=== PATIENT | female | born 1975 | race Caucasian/White ===

== ENCOUNTER 2024-11-23 10:40 | Emergency (ER) | payer OTHER ==
[2024-11-23] MEDS: Sodium Chloride 0.9% 1,000 ML IV ONE (11:31)
[2024-11-23] MEDS: Ondansetron 4 MG/2 ML SDV IVPUSH ONE (11:32)
[2024-11-23] MEDS: Ketorolac 30 MG/ML SDV IVPUSH ONE (11:32)
[2024-11-23 11:34] LABS: BASOPHILS ABSOLUTE AUTO 0.05 K/uL (0.00-0.20); BASOPHILS PERCENT AUTO 0.8 % (0.0-1.0); EOSINOPHILS ABSOLUTE AUTO 0.16 K/uL (0.00-0.45); EOSINOPHILS PERCENT AUTO 2.5 % (0.0-6.0); HEMATOCRIT 39.6 % (37.0-47.0); HEMOGLOBIN 13.3 g/dL (12.0-16.0); IMMATURE GRAN ABSOLUTE AUTO 0.03 K/uL (0.00-0.05); IMMATURE GRAN PERCENT AUTO 0.5 % (0.0-0.4); LYMPHOCYTES ABSOLUTE AUTO 1.79 K/uL (1.00-4.80); LYMPHOCYTES PERCENT AUTO 28.4 % (24.0-44.0); MEAN CORPUSCULAR HEMOGLOBIN 30.4 pg (28.0-32.0); MEAN CORPUSCULAR HGB CONC 33.6 g/dL (32.0-36.0); MEAN CORPUSCULAR VOLUME 90.6 fL (83.0-99.0); MEAN PLATELET VOLUME 10.4 fL (9.4-12.3); MONOCYTES ABSOLUTE AUTO 0.32 K/uL (0.00-0.80); MONOCYTES PERCENT AUTO 5.1 % (0.0-8.0); NEUTROPHILS ABSOLUTE AUTO 3.96 K/uL (1.80-7.70); NEUTROPHILS PERCENT AUTO 62.7 % (41.0-71.0); PLATELET COUNT,PLT 237 K/uL (150-400); RED BLOOD CELL COUNT 4.37 M/uL (4.10-5.30); WHITE BLOOD CELL COUNT,WBC 6.31 K/uL (3.9-11.3)
[2024-11-23] MEDS: Iopamidol 755 MG/ML 500 ML Multipack Bottle IVPUSH STA (11:58)
[2024-11-23 12:02] LABS: A/G RATIO 1.2 (0.9-1.6); ALBUMIN 3.7 g/dL (3.4-5.0); BILIRUBIN TOTAL 0.9 mg/dL (0.2-1.0); CALCIUM 9.2 mg/dL (8.5-10.1); CARBON DIOXIDE,CO2 25.1 mmol/L (21.0-32.0); CREATININE 1.2 mg/dL (0.6-1.0); EST CRCL DRUG DOSING (CG) 51.03 mL/min; MAGNESIUM 1.9 mg/dL (1.8-2.4); POTASSIUM,K 3.8 mmol/L (3.5-5.1); PROTEIN TOTAL,TP 6.8 g/dL (6.4-8.2)
[2024-11-23 12:12] LABS: APPEARANCE,URINE CLEAR; BILIRUBIN,URINE NEGATIVE (NEGATIVE); COLOR,URINE YELLOW; GLUCOSE,URINE NEGATIVE (NEGATIVE); KETONES,URINE NEGATIVE (NEGATIVE); LEUKOCYTE ESTERASE,URINE NEGATIVE (NEGATIVE); NITRITE,URINE NEGATIVE (NEGATIVE); OCCULT BLOOD,URINE TRACE-INTACT (NEGATIVE); PROTEIN,URINE NEGATIVE (NEGATIVE)
[2024-11-23 12:17] LABS: BACTERIA,URINE FEW (NEGATIVE); MUCUS,URINE NOT SEEN (NONE-MOD); RBC,URINE 0-3 (0-2/HPF); SQUAMOUS EPITHELIAL CELLS,UR FEW; WBC,URINE 0-2 (0-5/HPF)
== END 2024-11-23 13:03 | disposition home or self-care (01) ==
LOC: MW.ED 10:40
DX: K80.20 Calculus of gallbladder without cholecystitis without obstruction (principal); R74.8 Abnormal levels of other serum enzymes; E27.9 Disorder of adrenal gland, unspecified; Z75.8 Other problems related to medical facilities and other health care; F17.200 Nicotine dependence, unspecified, uncomplicated
CPT/HCPCS: 36415; 74177; 80053; 81001; 83690; 83735; 85025; 96361; 96374; 96375; 99284; J1885; J2405; J7030; Q9967; 99283